=== PATIENT | male | born 1960 | race Caucasian/White ===

== ENCOUNTER → 2017-12-11 | Outpatient (CLI) | payer MEDICARE, MEDICAID ==
[~2017-12-11] VITALS: Ht 177.8 cm; Wt 86.2 kg
[2017-12-11] VITALS (9 sets, daily range): BP systolic 16–127; BP diastolic 67–102
[~2017-12-11] MED LIST: ASPIR 8181 MG PO; ATORVASTATIN CA40 MG PO; AUGMENTIN 875875 MG PO; AVAPRO300 MG PO; BRILINTA90 MG PO; CARVEDILOL12.5 MG PO; CLEOCIN HCL150 MG PO; CLONIDINE HCL0.3 M3 PO; CORICIDIN COLD1 EACH PO; FLEXERIL PO; LIDOCAINE VISC100 M1 SWISH&SPIT; MAXZIDE-25 MG1 EACH PO; MEDROLDOSEPACK PO; NAPROSYN500 MG PO; NITROGLYCERIN0.4 MG SUBLING; NORVASC5 MG PO; PERCOCET 7.5-31 EACH PO; PERCOCET PO; PROAIR HFA8.5 GM INH; TESSALON PERLE100 MG PO; TIZANIDINE HCL 22 MG PO; TUSSIONEX PENN473 ML PO; ZPAK PO
[2017-12-11 09:12] LABS: HEMATOCRIT 45.8 % (42.0-52.0); HEMOGLOBIN 15.1 gm/dL (14.0-18.0); MCH 26.1 pg (26.0-34.0); MCHC 32.9 g/dL (28.0-37.0); MCV 79.3 fL (80.0-100.0); MPV 8.2 fl. (7.2-11.1); RBC 5.78 mil/uL (4.50-6.00); RDW-CV 16.3 % (10.5-14.5)
[2017-12-11 09:32] LABS: APTT 28.5 Seconds (25.0-31.3); INR 1.1; PROTIME 11.1 Seconds (9.20-11.50)
[2017-12-11 09:41] LABS: ANION GAP 6 mmol/L (7-16); BUN 14 mg/dL (7-18); CALCIUM 8.4 mg/dL (8.5-10.1); CHLORIDE 103 mmol/L (98-107); CO2 31 mmol/L (21-32); CREATININE 1.3 mg/dL (0.6-1.3); GLUCOSE 66 mg/dL (70-99); POTASSIUM 3.7 mmol/L (3.5-5.1); SODIUM 140 mmol/L (136-145)
[2017-12-11 09:45] LABS: ALBUMIN 4.1 g/dL (3.4-5.0); ALKALINE PHOSPHATASE 53 U/L (46-116); CHOLESTEROL 122 mg/dL (<200); HDL CHOLESTEROL 37 mg/dL (>40); LDL CHOLESTEROL 75 mg/dL (<100); SGOT 21 U/L (15-37); SGPT 18 U/L (30-65); TC:HDL 3.3 Ratio (Not establshd); TOTAL BILIRUBIN 0.7 mg/dL (<0.1-1.0); TOTAL PROTEIN 7.5 g/dL (6.4-8.2); TRIGLYCERIDE 50 mg/dL (<150); VLDL 10 mg/dL (<40)
[2017-12-11 09:47] LABS: SERUM ASSESSMENT Clear
--- NOTE | 2017-12-11 13:09 | CARD ---
[address] [address] CARDIAC CATH REPORT Name: PEYTON BOLAND Room: [facility] MARCELO [place]#: [id number] Admission: 12/11/17 Attend Phys: Otto Goldman MD Discharge: Date of : 58 Report #: [id number] THIS REPORT FOR: //name// APPROVED REPORT Study performed: 12/11/2017 09:20:43 Patient Details Patient Status: Out-Patient Room #: The patient is a 57 year-old male Event Personnel Aubrey Sharif Gyroscopic Engineering Technician, Jade Long RN Auto Body Repairer, Maggie Trimble RTR Monitor, Phil Worrell (R) Scrub Procedures Performed Art Access - R radial artery Left Heart Cath w/or w/o Coronaries [facility] Indication Chest pain Risk Factors Hypercholesterolemia, Hypertension Previous Procedures/Diagnoses Previous PCI Admission/Lab Medications/Medications given during procedure Heparin Unfract., Heparin IV 5000 units Procedure Narrative The patient was brought electively to the Cardiac Catheterization Laboratory and was prepped and draped in a sterile manner. The right wrist was infiltrated with 2% Lidocaine subcutaneous anesthesia. A Slender Glidesheath sheath was inserted into the right radial artery. Coronary angiography was performed using coronary diagnostic catheters. The right coronary system was accessed and visualized with a Diagnostic 6Fr JR4 catheter. The left coronary system was accessed and visualized with a Diagnostic 6Fr JL4 catheter. The left ventricle was accessed and visualized with a Diagnostic 6Fr angled pigtail catheter. Left ventricular/Aortic Valve gradient assessed via catheter pullback. Left ventriculogram was performed in GEE projection. Closure device was deployed with a 6 Fr Vasc-Band Reg 24cm. The patient tolerated the procedure well and there were no [facility] [address] [place] [address] CARDIAC CATH REPORT Name: KYAIBANSanam MENDOZA Room: [facility]#: [id number] Admission: 12/11/17 Attend Phys: Otto Goldman MD Discharge: Date of : 58 Report #: [id number] complications associated with the procedure. There was no hematoma. Intraoperative Conscious Sedation Sedation start time: 10:35 Case end Time: 10:50 Fentanyl 50 mcg Versed 4 mg Fluoro Time: 3.0 minutes Dose: DAP 28037 cGycm2 922 mGy Contrast Type and Amount: Visipaque 170 ml Coronary Angiography The patient's coronary anatomy is co- dominant. Diagnostic Cath Left Main 0% stenosis LAD 30% proximal stenosis Circumflex 0% stenosis Right Coronary proximal stent had 20% distal stenosis. 30% stenosis noted just beyond stent Left Ventriculography The left ventricular ejection fraction is estimated to be 50-55%. Left ventricular wall motion abnormalities are not present. There is no mitral insufficiency. Hemodynamics The aortic pressure is 135/88 mmHg with a mean of 112 mmHg. The left ventricular pressure is 128/5 mmHg with a mean of mmHg. The left ventricular end diastolic pressure is 3 mmHg. Pullback from the left ventricle to the aorta revealed no gradient across the aortic valve. Conclusion 1. no restenosis noted of stent in the proximal rca 2. normal LV function Recommendations Aggressive Medical Therapy <ELECTRONICALLY SIGNED> By: Aubrey Sharif MD, FACC 12/11/17 1309 1309 [id number] Sharif MD, FACC /INF
--- NOTE | 2017-12-11 14:09 | EKG ---
[place] [address] ELECTROCARDIOGRAM REPORT Name: PEYTON BOLAND Room: [facility]#: [id number] Admission: 12/11/17 Attend Phys: Otto Goldman MD Discharge: Date of : 58 Report #: [id number] THIS REPORT FOR: //name// [facility] Test Date: 2017-12-11 Test Time: 09:32:22 Pat Name: PEYTON BOLAND Department: Room: Gender: Diabetes Educator: : 1960 Requested By: Aubrey Sharif Order Number: [id number] Reading MD: Aubrey Sharif Measurements Intervals [place] Rate: 65 P: 35 NJ: 232 QRS: -58 QRSD: 114 T: 22 QT: 422 QTc: 439 Interpretive Statements Sinus rhythm Prolonged [place] interval Borderline IVCD with LAD consider Inferior infarct, old Baseline wander in lead(s) II,III,aVF Compared to ECG 11/14/2016 07:44:37 First degree AV block now present Electronically Signed On 12-11-2017 14:09:25 CDT by Aubrey Sharif [email or web address] <ELECTRONICALLY SIGNED> By: Aubrey Sharif MD, FACC 12/11/17 1409 0932 0932 Aubrey Sharif MD, [facility] /EPI
== END | disposition home or self-care (01) ==
LOC: M.CL 08:28
PROVIDERS: Internal Medicine Cardiovascular Disease
DX: I25.10 Atherosclerotic heart disease of native coronary artery without angina pectoris (principal); I10 Essential (primary) hypertension; Z98.890 Other specified postprocedural states; Z88.8 Allergy status to other drugs, medicaments and biological substances; Z79.899 Other long term (current) drug therapy; Z79.82 Long term (current) use of aspirin; Z96.643 Presence of artificial hip joint, bilateral; Z87.09 Personal history of other diseases of the respiratory system